=== PATIENT | female | born 1960 | race Hispanic/Latino ===

== ENCOUNTER 2016-09-13 19:18 | Emergency (ER) | payer MEDICAID, OTHER ==
[2016-09-13 19:46] VITALS: BP 115/68; PULSE 83; RESP 16; TEMP 98.3; O2SAT 97
--- NOTE | 2016-09-13 21:14 | ED PDOC ---
HPI: CCC, URI, Sore Throat Time Seen by Provider: 09/13/16 21:00 Chief Complaint (Nursing): ENT Problem Chief Complaint (Provider): sore throat History Per: Patient History/Exam Limitations: no limitations Have you had recent travel within the past 21 days to any of the following countries: [place], [place], [place] or [place]?: No Onset/Duration Of Symptoms: Days (x 4) Current Symptoms Are (Timing): Better Location Of Pain: Throat Sick Contacts (Context): None Associated Symptoms: denies: Fever, Chills Additional Complaint(s): Sima Ivy is a 56 year old female, with a previous medical history of arthritis, who presents to the ED with complaints of a sore throat ongoing for the past 4 days. She reports being unable to swallow solids but has been tolerating liquids. Patient reports symptoms are much better now but PMD referred patient to the ED for further evaluation. She reports her PMD refused to place her on antibiotics because she was placed on a course of antibiotics last week. PMD: Jeff Mccartney D.O. Past Medical History Reviewed: Historical Data, Nursing Documentation, Vital Signs Vital Signs: Last Vital Signs Temp 98.3 F 09/13/16 19:43 Pulse 83 09/13/16 19:43 Resp 16 09/13/16 19:43 BP 115/68 09/13/16 19:43 Pulse Ox 97 09/13/16 21:16 - Medical History PMH: Arthritis, Back Problems - Surgical History Surgical History: No Surg Hx - Family History Family History: States: Unknown Family Hx, Hypertension - Home Medications Home Medications: Ambulatory Orders Medication Instructions Recorded Hydroxychloroquine Sulfate 200 mg PO BID 01/15/15 [Plaquenil] Ibuprofen [Motrin] 600 mg PO Q6H PRN #20 tab 01/15/15 oxyCODONE/Acetaminophen [Percocet 1 tab PO Q6H PRN #15 tab 01/15/15 5/325 mg Tab] Cyclobenzaprine [Cyclobenzaprine 10 mg PO TID PRN #15 tab 12/14/15 HCl] Ibuprofen Susp [Motrin Oral Susp] 20 ml PO Q8 PRN #300 ml 09/13/16 - Allergies Allergies/Adverse Reactions: Allergies Allergy/AdvReac Type Severity Reaction Status Date / Time No Known Allergies Allergy Verified 01/15/15 12:11 Review of Systems ROS Statement: Except As Marked, All Systems Reviewed And Found Negative Constitutional: Negative for: Fever, Chills ENT: Positive for: Throat Pain Physical Exam - Reviewed Nursing Documentation Reviewed: Yes Vital Signs Reviewed: Yes - Physical Exam Appears: Positive for: Well, Non-toxic, No Acute Distress Head Exam: Positive for: ATRAUMATIC, NORMAL INSPECTION, NORMOCEPHALIC ENT: Negative for: Pharyngeal Erythema, Tonsillar Exudate, Tonsillar Swelling Cardiovascular/Chest: Positive for: Regular Rate, Rhythm Respiratory: Positive for: CNT, Normal Breath Sounds - ECG O2 Sat by Pulse Oximetry: 97 (RA) Pulse Ox Interpretation: Normal - Progress ED Course And Treament: RAPID STREP: NEG PATIENT COMFORTABLE IN ED. D/W DR. MCCARTNEY. PATIENT IS COMFORTABLE IN ED, NOT DEMONSTRATING ANY SOB ( WHICH SHE HAD DESCRIBED TO HIM IN THE OFFICE EARLIER TODAY) SHE CAN BE D/C HOME. Medical Decision Making Medical Decision Making: Initial Impression: Throat pain Initial Plan: * rapid strep * reevaluation Scribe Attestation: Documented by Lorena Alvarado, acting as a scribe for Rina Maddox PA-C. Provider Scribe Attestation: All medical record entries made by the Scribe were at my direction and personally dictated by me. I have reviewed the chart and agree that the record accurately reflects my personal performance of the history, physical exam, medical decision making, and the department course for this patient. I have also personally directed, reviewed, and agree with the discharge instructions and disposition. Disposition - Clinical Impression Clinical Impression: Pharyngitis - Patient ED Disposition Is Patient to be Admitted: No - Disposition Disposition: Routine/Home Disposition Time: 22:12 Condition: FAIR Prescriptions: Ibuprofen Susp [Motrin Oral Susp] 20 ml PO Q8 PRN #300 ml PRN Reason: Sore Throat Instructions: Pharyngitis (ED)
== END 2016-09-13 22:41 | disposition home or self-care (01) ==
LOC: H.ER 19:18
DX: J02.9 Acute pharyngitis, unspecified (principal)

== ENCOUNTER 2016-12-06 14:10 | Emergency (ER) | payer OTHER ==
[2016-12-06 14:17] VITALS: BP 117/69; PULSE 79; RESP 16; O2SAT 99
[2016-12-06 14:20] VITALS: TEMP 98
--- NOTE | 2016-12-06 15:21 | ED PDOC ---
Upper Extremity Pain/Injury Time Seen by Provider: 12/06/16 14:21 Chief Complaint (Nursing): Upper Extremity Problem/Injury Chief Complaint (Provider): Upper Extremity Problem/Injury History Per: Patient History/Exam Limitations: no limitations Onset/Duration Of Symptoms: Days (x2) Current Symptoms Are (Timing): Still Present Additional Complaint(s): Sima Ivy is a 56 year old female with a past medical history of arthritis in her lower back presenting to the ED for an evaluation of a 2 day history of right wrist pain associated with tingling in her right hand radiating up her forearm and weakness in her right hand. The patient is right hand dominant. She denies any swelling, fever, chills, headache, or neck pain. She also denies any recent trauma or injury and has not taken any medications for the pain. PMD: Jeff Mirza MD Past Medical History Reviewed: Historical Data, Nursing Documentation, Vital Signs Vital Signs: Last Vital Signs Temp 98.0 F 12/06/16 14:17 Pulse 79 12/06/16 14:17 Resp 16 12/06/16 14:17 BP 117/69 12/06/16 14:17 Pulse Ox 99 12/06/16 14:17 - Medical History PMH: Arthritis, Back Problems - Surgical History Other surgeries: tubal ligation and umbilical hernia repair - Family History Family History: States: Hypertension - Social History Current smoker - smoking cessation education provided: No Ex-Smoker (has not smoked in the last 12 months): No - Home Medications Home Medications: Ambulatory Orders Medication Instructions Recorded Hydroxychloroquine Sulfate 200 mg PO BID 01/15/15 [Plaquenil] Ibuprofen [Motrin] 600 mg PO Q6H PRN #20 tab 01/15/15 oxyCODONE/Acetaminophen [Percocet 1 tab PO Q6H PRN #15 tab 01/15/15 5/325 mg Tab] Cyclobenzaprine [Cyclobenzaprine 10 mg PO TID PRN #15 tab 12/14/15 HCl] Ibuprofen Susp [Motrin Oral Susp] 20 ml PO Q8 PRN #300 ml 12/06/16 - Allergies Allergies/Adverse Reactions: Allergies Allergy/AdvReac Type Severity Reaction Status Date / Time No Known Allergies Allergy Verified 01/15/15 12:11 Review of Systems ROS Statement: Except As Marked, All Systems Reviewed And Found Negative (and as per HPI) Constitutional: Negative for: Fever, Chills Musculoskeletal: Positive for: Hand Pain (right wrist pain ), Other (weakness in right hand; no right hand swelling ). Negative for: Neck Pain Neurological: Positive for: Other (tingling in right wrist radiating up right forearm). Negative for: Headache Physical Exam - Reviewed Nursing Documentation Reviewed: Yes Vital Signs Reviewed: Yes - Physical Exam Appears: Positive for: Non-toxic, In Acute Distress Head Exam: Positive for: ATRAUMATIC, NORMOCEPHALIC Skin: Positive for: Warm, Dry Eye Exam: Positive for: EOMI, PERRL Extremity: Positive for: Other (R wrist: no deformity, subtle nontender swelling dorsum central wrist (possible ganglion cyst), active and passive ROM: full, but illicits pain, <2 sec CR, strong radial pulse, 5/5 strength and light touch intact in all nerve distributions of the hand) Neurologic/Psych: Positive for: Alert, Oriented (x3). Negative for: Motor/ Sensory Deficits - Laboratory Results Result Diagrams: 12/06/16 15:15 - ECG O2 Sat by Pulse Oximetry: 99 (RA) Pulse Ox Interpretation: Normal Medical Decision Making Medical Decision Making: Impression: Wrist pain Differential includes but is not limited to ganglion, cyst, arthritis, gouty attack, occult fracture, wrist sprain Plan: * Uric acid * Cbc * Toradol 15 mg IVP * Wrist, Right 3 Views [RAD] * Reevaluation Accession No. : [id number] Patient Name / ID : GLENYS BEATTY / [id number] Exam Date : 12/06/2016 15:21:31 ( Approved ) Study Comment : Sex / Age : F / 56Y Creator : Shimon Rivera MD Dictator : Shimon Rivera MD Line Installer Repairer : Kettle Firer : Shimon Rivera MD Approver2 : Report Date : 12/06/2016 15:59:49 My Comment : PROCEDURE: Right Wrist Radiographs. HISTORY: RIGHT wrist pain radial aspect. The area of interest is marked on the study for review. COMPARISON: None. FINDINGS: BONES: Normal. No fracture. JOINTS: Normal. No dislocation. SOFT TISSUES: Normal. OTHER FINDINGS: None. IMPRESSION: Unremarkable right wrist radiographs. No preliminary report provided by emergency department personnel. No significant emergent lab abnormalities. On reeval pt reports pain still occurs with movement. However without movement is comfortable. Advised that the splint will prevent movement and likely will then limit he pain. DW pt findings and plan of care. Splint, f/u ortho, NSAIDs. Scribe Attestation: Documented by Shu Freeman, acting as a scribe for Miya Abad MD. Provider Scribe Attestation: All medical record entries made by the Scribe were at my direction and personally dictated by me. I have reviewed the chart and agree that the record accurately reflects my personal performance of the history, physical exam, medical decision making, and the department course for this patient. I have also personally directed, reviewed, and agree with the discharge instructions and disposition. Disposition - Clinical Impression Clinical Impression: Wrist pain Counseled Patient/Family Regarding: Studies Performed, Diagnosis, Need For Followup, Rx Given - Disposition Referrals: Juliana Chamorro [Outside] Bobbi Gaines MD [Staff Provider] - 12/07/16 Disposition: Routine/Home Disposition Time: 16:28 Condition: GOOD Additional Instructions: LIMIT USE OF RIGHT HAND UNTIL SEEN BY THE SPECIALIST (ORTHOPEDIST). [facility] [employer] WILL CALL YOU TO HELP WITH ARRANGING SPECIALIST. YOU CAN ALSO VISIT YOUR OWN DOCTOR FOR A REFERRAL IS NECESSARY. Prescriptions: Ibuprofen Susp [Motrin Oral Susp] 20 ml PO Q8 PRN #300 ml PRN Reason: Sore Throat Instructions: Arthralgia (ED), Tendinitis (ED) Forms: [facility] (Turkish)
[2016-12-06 15:41] LABS: BASO % 0.4 % (0.0-2.0); EOS # 0.1 K/uL (0.0-0.7); MONO # 0.5 K/uL (0.0-0.8); NEUT # 4.3 K/uL (1.8-7.0)
[2016-12-06 15:46] LABS: HEMOGLOBIN 12.6 g/dL (12.0-16.0); LYMPH # 2.1 K/uL (1.0-4.3); LYMPH % 30.5 % (20.0-40.0); MEAN CELL VOLUME 88.5 fl (81.0-99.0); MEAN CORPUSCULAR HEMOGLOBIN 30.1 pg (27.0-31.0); MEAN CORPUSCULAR HGB CONC 34.1 g/dL (33.0-37.0); MEAN PLATELET VOLUME 8.3 fl (7.2-11.7); MONO % 6.5 % (0.0-10.0); NEUT % 61.6 % (50.0-75.0); RBC 4.18 Mil/uL (3.80-5.20); RED CELL DISTRIBUTION WIDTH 13.4 % (11.5-14.5)
--- NOTE | 2016-12-06 16:01 | RAD ---
PROCEDURE: Right Wrist Radiographs. HISTORY: RIGHT wrist pain radial aspect. The area of interest is marked on the study for review. COMPARISON: None. FINDINGS: BONES: Normal. No fracture. JOINTS: Normal. No dislocation. SOFT TISSUES: Normal. OTHER FINDINGS: None. IMPRESSION: Unremarkable right wrist radiographs. No preliminary report provided by emergency department personnel.
== END 2016-12-06 16:46 | disposition home or self-care (01) ==
LOC: H.ER 14:10
DX: M25.531 Pain in right wrist (principal)

== ENCOUNTER 2016-12-28 10:34 | Emergency (ER) | payer OTHER ==
[2016-12-28 10:38] VITALS: BMI 24.5
[2016-12-28 10:39] VITALS: O2SAT 98
--- NOTE | 2016-12-28 11:12 | ED PDOC ---
HPI: Back Time Seen by Provider: 12/28/16 10:52 Chief Complaint (Nursing): Back Pain Chief Complaint (Provider): Back Pain History Per: Patient History/Exam Limitations: no limitations Onset/Duration Of Symptoms: Days (x1) Current Symptoms Are (Timing): Still Present Associated Symptoms: Other (persistent spasm to left lumbar back) Additional Complaint(s): Sima Ivy is a 56 year old female, with a past medical history of arthritis and back problems, who presents to the emergency department complaining left lumbar back pain associated with a persistent spasm onset since yesterday. Patient reports she was picking up her 30 pounds grandson when she felt a strain to her left lumbar back. She states she hasn't taken any pain medication since the incident. Patient denies any other trauma, midline pain, weakness, numbness, dysuria, fever, tingling, bladder or bowel incontinence. No further medical complaints. PMD: Jeff Mirza Past Medical History Reviewed: Historical Data, Nursing Documentation, Vital Signs Vital Signs: Last Vital Signs Temp 98.2 F 12/28/16 10:38 Pulse 92 H 12/28/16 10:38 Resp 17 12/28/16 10:38 BP 111/76 12/28/16 10:38 Pulse Ox 98 12/28/16 10:38 - Medical History PMH: Arthritis, Back Problems - Family History Family History: States: Hypertension - Social History Current smoker - smoking cessation education provided: No Alcohol: None Drugs: Denies - Home Medications Home Medications: Ambulatory Orders Medication Instructions Recorded Hydroxychloroquine Sulfate 200 mg PO BID 01/15/15 [Plaquenil] Ibuprofen [Motrin] 600 mg PO Q6H PRN #20 tab 01/15/15 oxyCODONE/Acetaminophen [Percocet 1 tab PO Q6H PRN #15 tab 01/15/15 5/325 mg Tab] Cyclobenzaprine [Cyclobenzaprine 10 mg PO TID PRN #15 tab 12/14/15 HCl] Ibuprofen Susp [Motrin Oral Susp] 20 ml PO Q8 PRN #300 ml 12/06/16 Cyclobenzaprine [Flexeril] 5 mg PO TID #14 tab 12/28/16 - Allergies Allergies/Adverse Reactions: Allergies Allergy/AdvReac Type Severity Reaction Status Date / Time No Known Allergies Allergy Verified 12/28/16 10:51 Review of Systems ROS Statement: Except As Marked, All Systems Reviewed And Found Negative Constitutional: Negative for: Fever, Chills Respiratory: Negative for: Cough, Shortness of Breath Gastrointestinal: Negative for: Nausea, Vomiting, Abdominal Pain, Diarrhea, Constipation, Other (No bowel or bladder incontinence) Musculoskeletal: Positive for: Back Pain (left lumbar back with persistent spasm ). Negative for: Other (No midline weakness) Skin: Negative for: Rash Neurological: Negative for: Weakness, Numbness (or tingling), Incoordination, Dizziness Physical Exam - Reviewed Nursing Documentation Reviewed: Yes Vital Signs Reviewed: Yes - Physical Exam Appears: Positive for: Well, Non-toxic, No Acute Distress Head Exam: Positive for: ATRAUMATIC, NORMAL INSPECTION, NORMOCEPHALIC Skin: Positive for: Normal Color, Warm, Dry Eye Exam: Positive for: EOMI, Normal appearance, PERRL ENT: Positive for: Normal ENT Inspection Neck: Positive for: Normal, Painless ROM, Supple Cardiovascular/Chest: Positive for: Regular Rate, Rhythm. Negative for: Murmur Respiratory: Positive for: Normal Breath Sounds. Negative for: Respiratory Distress Gastrointestinal/Abdominal: Positive for: Normal Exam, Bowel Sounds, Soft. Negative for: Tenderness Back: Positive for: Muscle Spasm (left lumbar back spasm). Negative for: Vertebral Tenderness (No midline tenderness) Extremity: Positive for: Normal ROM. Negative for: Tenderness Neurologic/Psych: Positive for: Alert, band master II-XII, Oriented, Gait (steady). Negative for: Motor/Sensory Deficits - ECG O2 Sat by Pulse Oximetry: 98 (RA) Pulse Ox Interpretation: Normal Medical Decision Making Medical Decision Making: Initial Impression: 56 y/o female with muscle spasm. No midline pain and no urinary complaints. Neurologically intact with no midline pain. No indication of imaging. Initial Plan: --Toradol 30 mg IM --reevaluation -Patient refusing muscle relaxant secondary to having to take care of her grandson this afternoon. Agrees to anti-inflammatory Scribe Attestation: Documented by Georges Huddleston, acting as a scribe for Kylah Dietz MD. Provider Scribe Attestation: All medical record entries made by the Scribe were at my direction and personally dictated by me. I have reviewed the chart and agree that the record accurately reflects my personal performance of the history, physical exam, medical decision making, and the department course for this patient. I have also personally directed, reviewed, and agree with the discharge instructions and disposition. Disposition - Clinical Impression Clinical Impression: Muscle spasm, Back pain - Disposition Disposition: Routine/Home Disposition Time: 11:49 Condition: GOOD Additional Instructions: Follow-up with PMD within 2 days. Return to ED if condition worsens. Motrin for pain. Flexeril for severe pain. Prescriptions: Cyclobenzaprine [Flexeril] 5 mg PO TID #14 tab Instructions: Acute Low Back Pain (ED) Forms: [facility] ([place])
[2016-12-28 11:43] VITALS: BP 130/76; PULSE 78; RESP 19; TEMP 97.7
== END 2016-12-28 11:43 | disposition home or self-care (01) ==
LOC: H.ER 10:34
DX: M62.838 Other muscle spasm (principal)
CPT/HCPCS: 96372; 99281; J1885

== ENCOUNTER 2017-01-07 13:34 | Observation (INO) | payer OTHER ==
[2017-01-07 13:35] VITALS: BMI 24.5
[2017-01-07] MEDS ORDERED: Sodium Chloride 0.9% 1,000 ML IV STA (14:00)
[2017-01-07] MEDS ORDERED: Iohexol 240 (50 ml) PO ONE (14:00)
--- NOTE | 2017-01-07 14:07 | ED PDOC ---
HPI: Abdomen Time Seen by Provider: 01/07/17 13:40 Chief Complaint (Nursing): Abdominal Pain Chief Complaint (Provider): Abd pain History Per: Patient History/Exam Limitations: no limitations Onset/Duration Of Symptoms: Days (yesterday) Current Symptoms Are (Timing): Still Present Additional Complaint(s): Abd pain left lower, constant. No vomit, diarrhea, weakness, headaches, dizziness, chest pain. No new food or drinks. No fever. No dysuria. Past Medical History Reviewed: Nursing Documentation, Vital Signs Vital Signs: Last Vital Signs Temp 98.3 F 01/07/17 13:42 Pulse 79 01/07/17 13:42 Resp 18 01/07/17 13:42 BP 121/64 01/07/17 13:42 Pulse Ox 99 01/07/17 14:12 - Medical History PMH: Arthritis, Back Problems - Surgical History Surgical History: No Surg Hx - Family History Family History: States: Unknown Family Hx - Social History Current smoker - smoking cessation education provided: No Alcohol: None Drugs: Denies - Home Medications Home Medications: Ambulatory Orders Medication Instructions Recorded Hydroxychloroquine Sulfate 200 mg PO BID 01/15/15 [Plaquenil] Ibuprofen [Motrin] 600 mg PO Q6H PRN #20 tab 01/15/15 oxyCODONE/Acetaminophen [Percocet 1 tab PO Q6H PRN #15 tab 01/15/15 5/325 mg Tab] Cyclobenzaprine [Cyclobenzaprine 10 mg PO TID PRN #15 tab 12/14/15 HCl] Ibuprofen Susp [Motrin Oral Susp] 20 ml PO Q8 PRN #300 ml 12/06/16 Cyclobenzaprine [Flexeril] 5 mg PO TID #14 tab 12/28/16 - Allergies Allergies/Adverse Reactions: Allergies Allergy/AdvReac Type Severity Reaction Status Date / Time No Known Allergies Allergy Verified 12/28/16 10:51 Review of Systems ROS Statement: Except As Marked, All Systems Reviewed And Found Negative Gastrointestinal: Positive for: Abdominal Pain Physical Exam - Reviewed Nursing Documentation Reviewed: Yes Vital Signs Reviewed: Yes - Physical Exam Appears: Positive for: Non-toxic, No Acute Distress Head Exam: Positive for: ATRAUMATIC, NORMAL INSPECTION, NORMOCEPHALIC Skin: Positive for: Normal Color, Warm, DRY Eye Exam: Positive for: EOMI, Normal appearance, PERRL ENT: Positive for: Normal ENT Inspection Neck: Positive for: Normal, Painless ROM Cardiovascular/Chest: Positive for: Regular Rate, Rhythm Respiratory: Positive for: CNT, Normal Breath Sounds Gastrointestinal/Abdominal: Positive for: Bowel Sounds, Soft, Tenderness (LLQ) Back: Positive for: Normal Inspection. Negative for: L CVA Tenderness, R CVA Tenderness Extremity: Positive for: Normal ROM. Negative for: Tenderness, Pedal Edema Neurologic/Psych: Positive for: Alert, Oriented - Laboratory Results Result Diagrams: 01/07/17 14:39 01/07/17 14:39 Interpretation Of Abn Labs: 3.4 k - ECG O2 Sat by Pulse Oximetry: 99 Pulse Ox Interpretation: Normal ED OBSERVATION Discharge: Yes Date of observation admission: 01/07/17 Time of observation admission: 14:10 - Observation admission statement Patient is being placed in observation because:: abd pain - Goals of Observation Goals of observation are:: abd pain brock - Progress Note Progress Note: 01/07/17 17:45 Stable. AAOx3. Pain controlled. Fu with pcp and gi. Disposition - Clinical Impression Clinical Impression: Colitis - Patient ED Disposition Is Patient to be Admitted: No Counseled Patient/Family Regarding: Studies Performed, Diagnosis, Need For Followup, Rx Given - Disposition Disposition: Routine/Home Disposition Time: 17:45 Condition: STABLE
[2017-01-07] MEDS ORDERED: Iohexol 240 (50 ml) ONE (14:17)
[2017-01-07 14:53] LABS: ALB/GLOB RATIO 1.3 (1.0-2.1); ALKALINE PHOSPHATASE 66 U/L (38-126); ALT/SGPT 48 U/L (9-52); AST/SGOT 33 U/L (14-36); BILIRUBIN,TOTAL 1.1 mg/dl (0.2-1.3); BLOOD UREA NITROGEN 12 mg/dl (7-17); CALCIUM 9.2 mg/dL (8.4-10.2); CARBON DIOXIDE 21 mmol/L (22-30); CHLORIDE 106 mmol/L (98-107); GFR AFRICAN-AMERICAN > 60; GLUCOSE,RANDOM 134 mg/dL (65-105); SODIUM 140 mmol/l (132-148); TOTAL PROTEIN 7.6 G/DL (6.3-8.2)
[2017-01-07 14:55] LABS: POTASSIUM 3.4 MMOL/L (3.6-5.0)
[2017-01-07 14:56] LABS: BASO % 0.4 % (0.0-2.0); EOS % 0.6 % (0.0-4.0); HEMATOCRIT 36.4 % (34.0-47.0); LYMPH % 29.2 % (20.0-40.0); MEAN CELL VOLUME 89.3 fl (81.0-99.0); MEAN CORPUSCULAR HEMOGLOBIN 30.3 pg (27.0-31.0); MEAN PLATELET VOLUME 8.3 fl (7.2-11.7); MONO # 0.4 K/uL (0.0-0.8); MONO % 5.7 % (0.0-10.0); NEUT # 4.4 K/uL (1.8-7.0); NEUT % 64.1 % (50.0-75.0); NRBC % 0.1 % (0.0-0.0); WHITE BLOOD COUNT 6.9 K/uL (4.8-10.8)
[2017-01-07] MEDS ORDERED: Iohexol 300 100 ML IJ ONE (16:51)
[2017-01-07] MEDS ORDERED: Sodium Chloride 0.9% 50 ML IV ONE (16:51)
--- NOTE | 2017-01-07 17:35 | CT ---
PROCEDURE: CT Abdomen and Pelvis with contrast HISTORY: Unspecified abdominal pain. COMPARISON: 01/15/2015 TECHNIQUE: Contrast dose: 90 cc Omnipaque 300 Radiation dose: Total exam DLP = 589.46 mGy-cm. This CT exam was performed using one or more of the following dose reduction techniques: Automated exposure control, adjustment of the mA and/or kV according to patient size, and/or use of iterative reconstruction technique. FINDINGS: LOWER THORAX: Unremarkable. LIVER: Hepatic steatosis. No focal masses. No intrahepatic bile duct dilatation or perihepatic ascites. GALLBLADDER AND BILE DUCTS: Unremarkable. PANCREAS: Unremarkable. No gross lesion or ductal dilatation. SPLEEN: Unremarkable. ADRENALS: Unremarkable. No mass. KIDNEYS AND URETERS: Unremarkable. No hydronephrosis. No solid mass. VASCULATURE: Unremarkable. No aortic aneurysm. BOWEL: Mural thickening of the wall of a short segment of the descending colon perhaps focal -segmental colitis. APPENDIX: No abnormalities to suggest acute appendicitis. No right lower quadrant inflammatory processes identified. PERITONEUM: Unremarkable. No free fluid. No free air. LYMPH NODES: Unremarkable. No enlarged lymph nodes. BLADDER: Unremarkable. REPRODUCTIVE: Unremarkable. BONES: No acute fracture. OTHER FINDINGS: None. IMPRESSION: Focal areas of colitis limited to descending colon, and adjacent sigmoid colon. Additional benign and/or incidental findings described above.
[2017-01-07] MEDS ORDERED: Potassium Chloride 20 mEq ER Tab PO ONE ×2 (17:44→18:08)
[2017-01-07 18:18] VITALS: BP 128/78; PULSE 78; RESP 19; TEMP 97.6; O2SAT 98
== END 2017-01-07 18:51 | disposition home or self-care (01) ==
LOC: H.ER 13:34 → H.EROBSV 14:00
PROVIDERS: ADMIT Emergency Medicine; ATTEND Emergency Medicine
DX: K52.9 Noninfective gastroenteritis and colitis, unspecified (principal); M19.90 Unspecified osteoarthritis, unspecified site; F17.200 Nicotine dependence, unspecified, uncomplicated
CPT/HCPCS: 36415; 74177; 80053; 85025; 96374; 99282; G0378; J1885; J7040; Q9966; Q9967

== ENCOUNTER 2017-04-25 22:31 | Emergency (ER) | payer OTHER ==
[2017-04-25 22:31] VITALS: BMI 25.4
[2017-04-25] MEDS ORDERED: Acetaminophen 160 mg/5 ml UD PO STA (23:07)
[2017-04-25 23:10] VITALS: RESP 16
--- NOTE | 2017-04-25 23:28 | ED PDOC ---
HPI: General Adult Time Seen by Provider: 04/25/17 22:44 Chief Complaint (Nursing): Flu-like Symptoms Chief Complaint (Provider): Flu-like Symptoms History Per: Patient History/Exam Limitations: no limitations Onset/Duration Of Symptoms: Days (x1) Current Symptoms Are (Timing): Still Present Additional Complaint(s): Sima Ivy is a 57 year old female with a past medical history of hypercholesterolemia, arthritis, hernia, and bladder lift, who presents to the ED complaining of a flu-like illness. Patient states she woke up at 9am feeling malaise, fatigue, sore throat, dry cough decreased appetite, body aches, nausea , and mild lower abdominal pain. Denies vomiting, diarrhea, urinary symptoms, and rash. Patient reports a positive sick contact in her niece who also had similar symptoms with associated vomiting of last week. Denies any recent travel. PMD: Dr. Jeff Mirza, [place] Past Medical History Reviewed: Historical Data, Nursing Documentation, Vital Signs Vital Signs: Last Vital Signs Temp 98.5 F 04/26/17 01:43 Pulse 79 04/26/17 01:43 Resp 16 04/26/17 01:43 BP 125/75 04/26/17 01:43 Pulse Ox 98 04/26/17 05:45 - Medical History PMH: Arthritis, Back Problems, Hypercholesterolemia (CONTROL BY DIETING) Denies: Chronic Kidney Disease - Surgical History Surgical History: Hernia Repair Other surgeries: Bladder lift - Family History Family History: States: Unknown Family Hx, Hypertension - Social History Current smoker - smoking cessation education provided: No Alcohol: None Drugs: Denies - Home Medications Home Medications: Ambulatory Orders Medication Instructions Recorded Oseltamivir Phosphate [Tamiflu] 75 mg PO BID #10 capsule 04/26/17 - Allergies Allergies/Adverse Reactions: Allergies Allergy/AdvReac Type Severity Reaction Status Date / Time No Known Allergies Allergy Verified 12/28/16 10:51 Review of Systems ROS Statement: Except As Marked, All Systems Reviewed And Found Negative Constitutional: Positive for: Malaise, Other (Fatigue) ENT: Positive for: Throat Pain Respiratory: Positive for: Cough (dry) Gastrointestinal: Positive for: Nausea, Abdominal Pain (lower, mild). Negative for: Vomiting, Diarrhea Genitourinary Female: Negative for: Dysuria, Frequency, Incontinence Musculoskeletal: Positive for: Other (Body aches) Skin: Negative for: Rash Neurological: Positive for: Other (Decreased appetite) Physical Exam - Reviewed Nursing Documentation Reviewed: Yes Vital Signs Reviewed: Yes - Physical Exam Appears: Positive for: Non-toxic, In Acute Distress (tired appearing) Head Exam: Positive for: ATRAUMATIC, NORMOCEPHALIC Skin: Positive for: Warm, Dry, Pallor Eye Exam: Positive for: EOMI, PERRL ENT: Positive for: Pharynx Is (clear with dry mucus membranes) Neck: Positive for: Painless ROM, Supple (with no meningismus) Cardiovascular/Chest: Positive for: Regular Rate, Rhythm. Negative for: Murmur Respiratory: Positive for: Normal Breath Sounds. Negative for: Wheezing Gastrointestinal/Abdominal: Positive for: Soft, Tenderness (mild suprapubic ttp) . Negative for: Mass, Distended, Guarding, Rebound Back: Positive for: Normal Inspection. Negative for: Decreased ROM Extremity: Positive for: Normal ROM. Negative for: Deformity Lymphatic: Negative for: Adenopathy Neurologic/Psych: Positive for: Alert. Negative for: Motor/Sensory Deficits - Laboratory Results Result Diagrams: 04/25/17 23:29 04/25/17 23:29 - ECG O2 Sat by Pulse Oximetry: 98 (RA) Pulse Ox Interpretation: Normal Medical Decision Making Medical Decision Making: Time: 23:06 Initial Impression: Flu-like illness. Differential diagnoses include, but are not limited to viral illness, dehydration, electrolyte abnormality, gastroenteritis, pneumonia, and influenza Plan: --EKG --CMP --Lipase --Magnesium --Phosphorus --ED urine dipstick --CBC w/ differential --Chest X-Ray 2 views --Tamiflu 75 mg PO --Toradol 15 mg IVP --Tyneol 960 mg PO --Zofran 4 mg IVP --Blood culture --IV Insertion --Influenza A B --Rapid strep --Reevaluation Time: 00:00 Patient is signed out to Dr. Nassar pending urine and flu treatment. Scribe Attestation: Documented by Russell Rivas acting as a scribe for Miya Abad MD. Scribe Attestation: All medical record entries made by the Scribe were at my direction and personally dictated by me. I have reviewed the chart and agree that the record accurately reflects my personal performance of the history, physical exam, medical decision making, and the department course for this patient. I have also personally directed, reviewed, and agree with the discharge instructions and disposition. Disposition - Clinical Impression Clinical Impression: Influenza-like symptoms - Patient ED Disposition Is Patient to be Admitted: Transfer of Care - Disposition Referrals: Jeff Mirza DO [Primary Care Provider] - Disposition: Transfer of Care Disposition Time: 00:00 Condition: IMPROVED Additional Instructions: follow up with your primary doctor in 1-2 days return to the ED with any worsening or concerning symptoms Prescriptions: Oseltamivir Phosphate [Tamiflu] 75 mg PO BID #10 capsule Instructions: Influenza (ED) Forms: [email or web address] (Upper Sorbian) Patient Signed Over To: Melvin Nassar Handoff Comments: pending urine and flu treatment
[2017-04-25] MEDS ORDERED: Acetaminophen 160 mg/5 ml UD ONE (23:30)
[2017-04-25 23:32] LABS: BASO % 0.1 % (0.0-2.0); EOS % 0.6 % (0.0-4.0); HEMOGLOBIN 13.3 g/dL (12.0-16.0); LYMPH # 0.6 K/uL (1.0-4.3); LYMPH % 7.3 % (20.0-40.0); MEAN CELL VOLUME 89.1 fl (81.0-99.0); MEAN CORPUSCULAR HEMOGLOBIN 30.5 pg (27.0-31.0); MEAN CORPUSCULAR HGB CONC 34.2 g/dL (33.0-37.0); MEAN PLATELET VOLUME 8.3 fl (7.2-11.7); MONO # 0.3 K/uL (0.0-0.8); MONO % 3.6 % (0.0-10.0); NEUT # 7.7 K/uL (1.8-7.0); NEUT % 88.4 % (50.0-75.0); NRBC % 0.1 % (0.0-0.0); PLATELET COUNT 200 K/uL (130-400); RBC 4.38 Mil/uL (3.80-5.20); RED CELL DISTRIBUTION WIDTH 13.4 % (11.5-14.5); WHITE BLOOD COUNT 8.7 K/uL (4.8-10.8)
[2017-04-25] MEDS ORDERED: Oseltamivir 6 MG/ML PO STA (23:39)
[2017-04-25 23:49] LABS: ALB/GLOB RATIO 1.1 (1.0-2.1); ALBUMIN 4.3 g/dL (3.5-5.0); ALT/SGPT 43 U/L (9-52); AST/SGOT 26 U/L (14-36); BLOOD UREA NITROGEN 15 mg/dl (7-17); CALCIUM 8.8 mg/dL (8.4-10.2); GFR AFRICAN-AMERICAN > 60; GFR NON-AFRICAN AMERICAN > 60; LIPASE 91 U/L (23-300); MAGNESIUM 1.8 MG/DL (1.6-2.3)
--- NOTE | 2017-04-26 00:56 | ED PDOC ---
- Laboratory Results Result Diagrams: 04/25/17 23:29 04/25/17 23:29 - ECG O2 Sat by Pulse Oximetry: 98 (RA) Medical Decision Making Medical Decision Making: Time: 00:00 --Patient is signed over to me by Dr. Abad pending urine and flu treatment. urine no real significant infection on UA pt will be given tamiflu rx Scribe Attestation: Documented by Russell Rivas acting as a scribe for Melvin Nassar MD. Scribe Attestation: All medical record entries made by the Scribe were at my direction and personally dictated by me. I have reviewed the chart and agree that the record accurately reflects my personal performance of the history, physical exam, medical decision making, and the department course for this patient. I have also personally directed, reviewed, and agree with the discharge instructions and disposition. Disposition - Clinical Impression Clinical Impression: Influenza-like symptoms - POA Present On Arrival: None - Disposition Referrals: Jeff Mirza DO [Primary Care Provider] - Disposition: Routine/Home Disposition Time: 01:00 Condition: IMPROVED Additional Instructions: follow up with your primary doctor in 1-2 days return to the ED with any worsening or concerning symptoms Prescriptions: Oseltamivir Phosphate [Tamiflu] 75 mg PO BID #10 capsule Instructions: Influenza (ED) Forms: [employer] (Cameroonian)
[2017-04-26 00:58] LABS: BANDS 1 % (0-2); LYMPHOCYTE 9 % (20-50); MONOCYTE 3 % (0-10); NEUTROPHIL 87 % (42-75); TOTAL CELLS COUNTED 100
[2017-04-26 00:59] LABS: PLATELET ESTIMATE NORMAL (NORMAL)
[2017-04-26 01:24] LABS: URINE COLOR YELLOW (YELLOW)
[2017-04-26 01:25] LABS: URINE BILIRUBIN NEGATIVE (NEGATIVE); URINE BLOOD NEGATIVE (NEGATIVE); URINE CLARITY HAZY (Clear); URINE GLUCOSE (UA) NEGATIVE (Normal); URINE PROTEIN NEGATIVE (NEGATIVE)
[2017-04-26 01:26] LABS: URINE NITRATE NEGATIVE (NEGATIVE); URINE UROBILINOGEN 0.2 mg/dL (0.2-1.0)
[2017-04-26 01:27] LABS: SQUAMOUS EPITHIAL < 1 /hpf (0-5); URINE LEUKOCYTE ESTERASE TRACE Leu/uL (Negative)
[2017-04-26 01:44] VITALS: BP 125/75; PULSE 79; TEMP 98.5
[2017-04-26 02:32] VITALS: O2SAT 98
--- NOTE | 2017-04-26 10:30 | RAD ---
HISTORY: dizzy COMPARISON: 07/26/2014 TECHNIQUE: Chest PA and lateral FINDINGS: LUNGS: No active pulmonary disease. PLEURA: No significant pleural effusion identified. No pneumothorax apparent. CARDIOVASCULAR: Normal. OSSEOUS STRUCTURES: No significant abnormalities. VISUALIZED UPPER ABDOMEN: Normal. OTHER FINDINGS: None. IMPRESSION: No active disease.
--- NOTE | 2017-04-26 10:51 | CARD ---
APPROVED REPORT EKG Measurement Heart [id number] <Conclusion> Normal sinus rhythm Normal ECG
== END 2017-04-26 01:49 | disposition home or self-care (01) ==
LOC: H.ER 22:31
DX: J11.1 Influenza due to unidentified influenza virus with other respiratory manifestations (principal); R53.83 Other fatigue; E78.00 Pure hypercholesterolemia, unspecified
CPT/HCPCS: 71046; 80053; 81003; 83690; 83735; 84100; 85025; 87040; 87070; 87086; 87430; 87804; 93005; 96374; 96375; 99283; J1885; J2405

== ENCOUNTER 2017-09-22 13:38 | Emergency (ER) | payer OTHER ==
[2017-09-22 13:39] VITALS: BMI 25.4
[2017-09-22 14:27] VITALS: PULSE 72; RESP 18; TEMP 98; O2SAT 98
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
[2017-09-22 16:11] VITALS: BP 127/78
== END 2017-09-22 16:17 | disposition home or self-care (01) ==
LOC: H.ER 13:38
DX: M25.512 Pain in left shoulder (principal); V43.62XA Car passenger injured in collision with other type car in traffic accident, initial encounter; Y92.410 Unspecified street and highway as the place of occurrence of the external cause; E78.00 Pure hypercholesterolemia, unspecified

== ENCOUNTER 2017-10-16 10:29 | Emergency (ER) | payer OTHER ==
[2017-10-16 10:29] VITALS: BMI 25.4
[2017-10-16 10:57] VITALS: RESP 17; TEMP 97.9
[2017-10-16] MEDS ORDERED: Lidocaine 5% Patch TD STA (11:45)
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
[2017-10-16] MEDS ORDERED: Lidocaine 5% Patch TD ONE (12:15)
[2017-10-16 15:05] VITALS: BP 140/89; PULSE 78; O2SAT 100
--- NOTE | 2017-10-16 15:06 | RAD ---
PROCEDURE: Cervical Spine Radiographs. HISTORY: Pain. COMPARISON: None. FINDINGS: BONES: Alignment maintained. No fracture. Dens Intact. DISC SPACES: Normal. SOFT TISSUES: Normal. No prevertebral soft tissue swelling. OTHER FINDINGS: None. IMPRESSION: Unremarkable cervical spine radiographs. Follow up CT may be utilized if symptoms persist or worsen.
--- NOTE | 2017-10-17 08:24 | CARD ---
APPROVED REPORT EKG Measurement Heart [id number] <Conclusion> Sinus bradycardia with 1st degree AV block with occasional premature ventricular complexes Otherwise normal ECG
[2017-10-19 10:40] LABS: 23 KD (IGG) BAND Nonreactive
== END 2017-10-16 14:26 | disposition home or self-care (01) ==
LOC: H.ER 10:29
DX: M43.6 Torticollis (principal); E78.00 Pure hypercholesterolemia, unspecified
CPT/HCPCS: 72040; 86617; 93005; 96374; 96375; 99283; J1885; J2060

== ENCOUNTER 2017-11-12 10:25 | Emergency (ER) | payer OTHER ==
[2017-11-12 10:30] VITALS: PULSE 80; RESP 16; TEMP 97.3; O2SAT 97
[2017-11-12 10:31] VITALS: BMI 24.9
--- NOTE | 2017-11-12 11:04 | ED PDOC ---
HPI: Back Time Seen by Provider: 11/12/17 10:28 Chief Complaint (Nursing): Back Pain Chief Complaint (Provider): Back pain History Per: Patient Additional Complaint(s): Pt is a 57 yo female,PMH of back pain and high cholesterol, presents to ED c/o pain mid- to low-back radiating to rt arm x 2 days. Pt states she has been having back problems and arthritis but pain has been worse past 2 days. No medications taken for pain thus far. No bowel or bladder dysfunction Past Medical History Reviewed: Nursing Documentation, Vital Signs Vital Signs: Last Vital Signs Temp 97.3 F L 11/12/17 10:29 Pulse 80 11/12/17 10:29 Resp 16 11/12/17 10:29 BP 132/80 11/12/17 10:29 Pulse Ox 97 11/12/17 10:29 - Medical History PMH: Arthritis, Back Problems, Hypercholesterolemia (CONTROL BY DIETING) Denies: Chronic Kidney Disease - Surgical History Surgical History: Hernia Repair - Family History Family History: States: Unknown Family Hx, Hypertension - Living Arrangements Living Arrangements: With Family - Social History Current smoker - smoking cessation education provided: No Alcohol: None Drugs: Denies - Home Medications Home Medications: Ambulatory Orders Medication Instructions Recorded Oseltamivir Phosphate [Tamiflu] 75 mg PO BID #10 capsule 04/26/17 Lidocaine 5% [Lidoderm] 1 ea TD DAILY PRN #10 patch 10/16/17 Ibuprofen [Motrin] 600 mg PO Q6 #20 tab 11/12/17 - Allergies Allergies/Adverse Reactions: Allergies Allergy/AdvReac Type Severity Reaction Status Date / Time No Known Allergies Allergy Verified 11/12/17 10:35 Review of Systems ROS Statement: Except As Marked, All Systems Reviewed And Found Negative Musculoskeletal: Positive for: Back Pain Physical Exam - Reviewed Nursing Documentation Reviewed: Yes Vital Signs Reviewed: Yes - Physical Exam Appears: Positive for: Well, Non-toxic, No Acute Distress Head Exam: Positive for: ATRAUMATIC, NORMAL INSPECTION, NORMOCEPHALIC Skin: Positive for: Normal Color, Warm, DRY Eye Exam: Positive for: EOMI, Normal appearance, PERRL ENT: Positive for: Normal ENT Inspection Neck: Positive for: Normal, Painless ROM Cardiovascular/Chest: Positive for: Regular Rate, Rhythm Respiratory: Positive for: CNT, Normal Breath Sounds Gastrointestinal/Abdominal: Positive for: Normal Exam, Soft Back: Positive for: Normal Inspection. Negative for: Vertebral Tenderness, Decreased ROM Extremity: Positive for: Normal ROM Neurologic/Psych: Positive for: Alert, Oriented - Laboratory Results Result Diagrams: 11/12/17 12:00 11/12/17 12:00 - ECG O2 Sat by Pulse Oximetry: 97 Medical Decision Making Medical Decision Making: IV Toradol administered. Pt reports feeling greatly improved on re-eval. Diagnostics reviewed Disposition - Clinical Impression Clinical Impression: Acute back pain - Patient ED Disposition Is Patient to be Admitted: No - Disposition Disposition: Routine/Home Disposition Time: 13:38 Condition: STABLE Prescriptions: Ibuprofen [Motrin] 600 mg PO Q6 #20 tab Instructions: Upper Back Pain Forms: [employer] (Taiwanese)
[2017-11-12 12:15] LABS: BASO % 0.4 % (0.0-2.0); EOS % 0.5 % (0.0-4.0); HEMOGLOBIN 13.5 g/dL (12.0-16.0); LYMPH # 1.5 K/uL (1.0-4.3); LYMPH % 18.9 % (20.0-40.0); MEAN CELL VOLUME 89.5 fl (81.0-99.0); MEAN CORPUSCULAR HEMOGLOBIN 31.1 pg (27.0-31.0); MEAN CORPUSCULAR HGB CONC 34.8 g/dL (33.0-37.0); MEAN PLATELET VOLUME 7.7 fl (7.2-11.7); MONO # 0.2 K/uL (0.0-0.8); NEUT # 5.9 K/uL (1.8-7.0); NEUT % 77.2 % (50.0-75.0); RBC 4.34 Mil/uL (3.80-5.20); RED CELL DISTRIBUTION WIDTH 13.6 % (11.5-14.5); WHITE BLOOD COUNT 7.7 K/uL (4.8-10.8)
[2017-11-12 12:44] LABS: ALB/GLOB RATIO 1.2 (1.0-2.1); ALBUMIN 4.5 g/dL (3.5-5.0); ALT/SGPT 38 U/L (9-52); AST/SGOT 29 U/L (14-36); BLOOD UREA NITROGEN 14 mg/dl (7-17); CALCIUM 9.2 mg/dL (8.4-10.2); GFR AFRICAN-AMERICAN > 60; GFR NON-AFRICAN AMERICAN > 60
--- NOTE | 2017-11-12 13:03 | CT ---
Date of service: 11/12/2017 PROCEDURE: CT Cervical Spine without contrast HISTORY: upper back pain and neck pain, radiculopathy on R COMPARISON: None available. TECHNIQUE: Axial computed tomography images were obtained of the cervical spine without the use of intravenous contrast. Coronal and sagittal reformatted images were created and reviewed. Radiation dose: Total exam DLP = 284.35 mGy-cm. This CT exam was performed using one or more of the following dose reduction techniques: Automated exposure control, adjustment of the mA and/or kV according to patient size, and/or use of iterative reconstruction technique. FINDINGS: VERTEBRAE: No fracture. Normal alignment. No destructive bony lesion. DISCS/SPINAL CANAL/NEURAL FORAMINA: Mild narrowing of the C5-6 and C6-7 intervertebral disc spaces consistent with early degenerative disc disease. Remaining disc spaces maintained in height. PARASPINAL SOFT TISSUES: Unremarkable. OTHER FINDINGS: None. IMPRESSION: No fracture/ dislocation. Mild degenerative disc disease C5-6 and C6-7.
--- NOTE | 2017-11-12 13:27 | RAD ---
Date of service: 11/12/2017 PROCEDURE: Right Wrist Radiographs. HISTORY: pain, atrauamtic COMPARISON: None. FINDINGS: BONES: Normal. No fracture. JOINTS: Normal. No dislocation. SOFT TISSUES: Normal. OTHER FINDINGS: None. IMPRESSION: Normal right wrist radiographs.
--- NOTE | 2017-11-12 13:28 | RAD ---
Date of service: 11/12/2017 HISTORY: upper back pain COMPARISON: 04/25/2017 TECHNIQUE: Chest PA and lateral FINDINGS: LUNGS: No active pulmonary disease. PLEURA: No significant pleural effusion identified. No pneumothorax apparent. CARDIOVASCULAR: Normal. OSSEOUS STRUCTURES: No significant abnormalities. VISUALIZED UPPER ABDOMEN: Normal. OTHER FINDINGS: None. IMPRESSION: No active disease.
[2017-11-12 13:39] VITALS: BP 128/76
--- NOTE | 2017-11-12 13:39 | CARD ---
APPROVED REPORT Date of service: 11/12/2017 EKG Measurement Heart [id number] <Conclusion> Normal sinus rhythm Normal ECG
== END 2017-11-12 13:40 | disposition home or self-care (01) ==
LOC: H.ER 10:25
DX: M54.9 Dorsalgia, unspecified (principal); M19.90 Unspecified osteoarthritis, unspecified site; E78.00 Pure hypercholesterolemia, unspecified
CPT/HCPCS: 71046; 72125; 73110; 80053; 85025; 93005; 96374; 99283; J1885